=== PATIENT | female | born 1975 | race Caucasian/White ===

== ENCOUNTER 2025-08-17 12:40 | Emergency (ER) | payer OTHER, SELFPAY ==
[2025-08-17 12:42] VITALS: BP 137/99
[2025-08-17] MEDS: TORADOL 15 MG IM (15:07)
--- NOTE | 2025-08-17 15:13 | ED.GENMED ---
History of Present Illness
General
Chief Complaint: Fall
Source: patient
Exam Limitations: none
Time Seen by Provider: 08/17/25 14:40
Nursing documentation reviewed up to this point in time: agreed with
History of Present Illness
History of Present Illness:
Patient is a 50-year-old female who presents to the emergency department with persistent headache following fall 2 nights ago. Patient states she was using a knee scooter with recent foot surgery while at the [facility] on Friday night. The
scooter became stuck on a curb and she fell over the handlebars striking her head on the pavement. She also states she struck her right shoulder and bilateral knees. She does not believe she lost consciousness. Patient was quickly evaluated by a
medic at the [facility] however decided to stay for the game.
She states that over the past few days she has had significant bruising of her right frontal scalp. She has been experiencing significant headache and right ear pain. She feels extremely fatigued and has been suffering with some brain fog. No
vomiting, visual changes, or dizziness.
She has bruising of her right shoulder and bilateral knees. She is ambulating without pain. No chest, neck, or back pain. No abdominal pain.
She is not on any blood thinners.
Review of Systems
Review of Systems
Allergies reviewed?: Yes
All Other Systems: ROS reviewed and negative except as documented in HPI and ROS
Phy Exam
Physical Exam
Physical Exam:
GENERAL: No acute distress
HEENT: Healing ecchymosis of right frontal scalp extending to temporal region, extraocular muscles intact, no signs of entrapment, dentition intact, bilateral ear canals patent with visualized TM and clear landmarks, no hemotympanum, no other
obvious trauma
NECK: no midline tenderness, normal range of motion, no other obvious trauma
BACK: no midline tenderness, no other obvious trauma
CHEST: no tenderness, no flail segment, no subcutaneous emphysema, no other obvious trauma
LUNGS: clear to auscultation bilaterally
CARDIOVASCULAR: regular rate and rhythm.
ABDOMEN: soft, non-tender, no masses, no other obvious trauma
PELVIS: stable, no obvious injury
EXTREMITIES: moving all extremities, ecchymosis to right shoulder without deformity or bony tenderness, mild tenderness and edema to right proximal hand without tenderness over anatomical snuffbox, very minor abrasion to left knee with minor
ecchymosis to right knee�no deformity or joint laxity, left upper extremity atraumatic and nontender, distal pulses intact
NEUROLOGIC: awake, alert x 3, no facial droop or asymmetry, CN II-XII grossly intact on examination, no focal deficits
Course
Orders/Labs/Results
Orders:
Orders
08/17/25 12:[address] [CT Head W/o Iv Contrast] Stat
Comment:
Reason For Exam: fall with head injury
08/17/25 13:32
CT Cervical Spine W/o Iv Contr Urgent
Comment:
Reason For Exam: headache s/p fall
08/17/25 14:42
CR Shoulder, Trauma - Right Urgent
Comment:
Reason For Exam: Injury
08/17/25 15:01
Ketorolac [Toradol] 15 mg IM NOW STA
Hand, Right 3 View [CR Hand - Right Min 3 Views] Urgent
Comment:
Reason For Exam: fall
08/17/25 15:06
Ketorolac [Toradol] 15 mg .ROUTE .STK-MED ONE
Vital Signs
Initial and Last Documented VS:
Initial Vital Signs
Temp Pulse Resp BP Pulse Ox
98.7 F 77 18 137/99 98
08/17/25 12:42 08/17/25 12:42 08/17/25 12:42 08/17/25 12:42 08/17/25 12:42
Last Documented Vital Signs
Temp Pulse Resp BP Pulse Ox
98.7 F 77 18 137/99 98
08/17/25 12:42 08/17/25 12:42 08/17/25 12:42 08/17/25 12:42 08/17/25 15:15
MDM/Problems Addressed
Differential Diagnosis Includes:
Not limited to: Concussion, contusion/hematoma, intracerebral hemorrhage, skull fracture, tympanic membrane rupture, etc.
MDM/Problems Addressed:
The patient is a 50-year-old female presenting to the ED two days after a fall from a knee scooter, during which she sustained a head strike. She reports persistent headache since the fall, along with facial bruising, and bruising of the right
shoulder and bilateral knees. She denies loss of consciousness, vomiting, visual changes, weakness, numbness, or other neurologic symptoms.
On examination, she is neurologically intact, with no focal deficits, and hemodynamically stable. No signs of basilar skull fracture, open wounds, or other evidence of serious traumatic injury.
CT head and cervical spine were performed and negative for acute intracranial process, fracture, or cervical spine injury.
X-ray of right shoulder and right hand without acute fractures or dislocations.
Given negative imaging, clinical stability, and absence of neurologic findings, her symptoms are most consistent with a mild concussion. No indication for hospital admission at this time.
Plan to discharge with head injury precautions and return precautions. Advised to continue symptomatic management (acetaminophen as needed, rest, gradual return to activity). She will f/u with PCP.
Chronic conditions affecting care:
N/A
Acute Exacerbation and/or Progression of Chronic Illness:
N/A
*Radiology
Radiology exam reviewed: radiology read reviewed
*Pulse Oximetry
SaO2: 98
Oxygen Mode of Delivery: Room air
Patient hypoxic: no
*EKG
Interpreted by ED Provider?: NA
*Industrial Truck Driver Interpretation
Rate: Industrial Truck Driver- N/A
*Critical Care Note
Total Time (30-74mins, 75-104mins- exclusive of procedures): Not Applicable
ED Attending Note
-
Portions of this chart may have been created with voice recognition software.� Occasional wrong word or��sound alike� substitutions may have occurred due to the inherent limitations of voice recognition software.
Discharge Plan
Departure
Patient Disposition: Home (Routine Discharge)
Date of Disposition: 08/17/25
Time of Disposition: 16:33
Patient with high blood pressure during this ER visit?: Yes
Discharge Problem:
Fall, Concussion
Instructions: Concussion, Adult (DC), BLOOD PRESSURE
Referrals:
Jose Raygoza NP [Family Provider, General] - Follow up in 5-7 days
Activity Restrictions/Additional Instructions:
RETURN TO THE EMERGENCY DEPARTMENT ANY SEVERE HEADACHE/NECK PAIN, INTRACTABLE NAUSEA/VOMITING, PERSISTENT DIZZINESS OR LIGHTHEADEDNESS, CHANGES IN VISION OR MENTAL STATUS, WORSENING IN CURRENT SYMPTOMS, OR ANY OTHER CONCERNS
- As discussed�your imaging of your head, cervical spine, right hand/shoulder showed no evidence of acute traumatic injuries. You likely sustained a concussion during your fall.
- Please continue to treat symptoms supportively at home with Tylenol/Motrin. It is important to stay well-hydrated and get plenty of rest. Limit screen time.
- Continue to take your antibiotic as prescribed for the wound on your foot.
- Follow-up with primary care for further evaluation/management to ensure that your symptoms are improving.
Monitor your symptoms closely and return to the emergency department with any acute worsening/new symptoms or any other concerns
Interventions
Interventions:
*Risk Screen - Suicide Last Done: 08/17/25 12:42
*General Assessment Last Done: 08/17/25 12:42
*Neglect/Abuse Screening Last Done: 08/17/25 12:42
*Nursing Disposition Last Done: 08/17/25 16:50
ED-Musculoskeletal Assessment Last Done: 08/17/25 15:14
ED- Neurological Assessment Last Done: 08/17/25 15:14
ED-Skin Assessment Last Done: 08/17/25 15:14
Discharge Date and Time
Discharge Date/Time: 08/17/25 17:02
Print Language: NEPALI
== END 2025-08-17 17:02 | disposition home or self-care (01) ==
LOC: EMR 12:40
PROVIDERS: EMERGENCY PHYSICIAN Emergency Medicine; FAMILY PHYSICIAN Nurse Practitioner Gerontology
DX: S06.0X0A Concussion without loss of consciousness, initial encounter (principal); S00.03XA Contusion of scalp, initial encounter; S40.011A Contusion of right shoulder, initial encounter; S80.02XA Contusion of left knee, initial encounter; S80.01XA Contusion of right knee, initial encounter; V00.141A Fall from scooter (nonmotorized), initial encounter
CPT/HCPCS: 96372; 99284; 70450; 72125; 73030; 73130